=== PATIENT | male | born 1995 | race Two or more races ===

== ENCOUNTER 2020-09-21 19:30 | Emergency (ER) | payer OTHER ==
[~2020-09-21] VITALS: Ht 165.1 cm; Wt 86.2 kg
[2020-09-21] MEDS ORDERED: PROAIR RESPICL90 MCG IH (22:54)
[2020-09-21] MEDS ORDERED: ZITHROMAX500 MG PO (22:54)
[2020-09-21] MEDS ORDERED: MEDROLPACK PO (22:54)
[2020-09-21] MEDS ORDERED: TUSNEL LIQUID178 ML PO (22:54)
== END 2020-09-22 00:26 | disposition home or self-care (01) ==
LOC: ER 19:30
DX: U07.1 COVID-19 (principal)

== ENCOUNTER 2020-11-26 22:54 | Emergency (ER) | payer OTHER ==
[~2020-11-26] VITALS: Ht 167.6 cm; Wt 86.2 kg
[~2020-11-26 22:54] MED LIST: MEDROLPACK PO; PROAIR RESPICL90 MCG IH; TUSNEL LIQUID178 ML PO; ZITHROMAX500 MG PO
[2020-11-27] MEDS ORDERED: ORASEP SPRAY30 ML MM (04:12)
== END 2020-11-27 04:25 | disposition home or self-care (01) ==
LOC: ER 22:54
DX: J03.80 Acute tonsillitis due to other specified organisms (principal)

== ENCOUNTER 2023-09-07 16:07 | Emergency (ER) | payer OTHER ==
[~2023-09-07] VITALS: Ht 167.6 cm; Wt 93.0 kg
[~2023-09-07 16:07] MED LIST changes: +ORASEP SPRAY30 ML MM
[2023-09-07] MEDS ORDERED: BISMUTH SUBSALICYLATE 524 MG/30 ML BLIST.PACK PO STA (17:09)
[2023-09-07] MEDS ORDERED: ONDANSETRON HCL 2 MG/ML VIAL IM STA (17:09)
[2023-09-07] MEDS ORDERED: ONDANSETRON HCL 2 MG/ML VIAL ONE (17:15)
[2023-09-07] MEDS ORDERED: BISMUTH SUBSALICYLATE 524 MG/30 ML BLIST.PACK PO ONE (17:15)
[2023-09-07 17:48] LABS: HEMATOCRIT 45.2 % (39.0-48.0); HEMOGLOBIN 15.2 g/dL (13-16.00); MEAN CORPUSCULAR HEMOGLOBIN 28.6 pg (27.00-32.0); MEAN CORPUSCULAR HGB CONC 33.6 g/dl (32.0-36.0); PLATELET COUNT 236 K/uL (150-450); RED BLOOD COUNT 5.32 M/uL (4.00-6.00); RED CELL DISTRIBUTION WIDTH 13.6 % (11.5-14.5)
[2023-09-07] MEDS ORDERED: CEFTRIAXONE SODIUM 1,000 MG VIAL IM STA (18:36)
[2023-09-07] MEDS ORDERED: CEFTRIAXONE SODIUM 1,000 MG VIAL ONE (18:40)
[2023-09-07] MEDS ORDERED: CEPHALEXIN500 MG PO (18:47)
== END 2023-09-07 18:57 | disposition home or self-care (01) ==
LOC: EMR PED 16:07 → ER 16:24
PROVIDERS: Emergency Medicine
DX: J03.80 Acute tonsillitis due to other specified organisms (principal); K52.89 Other specified noninfective gastroenteritis and colitis

== ENCOUNTER 2024-05-10 12:29 | Emergency (ER) | payer OTHER ==
[~2024-05-10] VITALS: Ht 167.6 cm; Wt 86.2 kg
[~2024-05-10 12:29] MED LIST changes: +CEPHALEXIN500 MG PO
[2024-05-10] MEDS ORDERED: 0.9 % SODIUM CHLORIDE 1,000 ML IV STA (13:10)
[2024-05-10] MEDS ORDERED: MORPHINE SULFATE 4 MG/ML VIAL IV ONE (13:15)
[2024-05-10] MEDS ORDERED: TAMSULOSIN HCL 0.4 MG CAP PO ONE ×2 (13:15→13:25)
[2024-05-10 13:56] LABS: HEMOGLOBIN 14.4 g/dL (13-16.00); MEAN CELL VOLUME 84.7 fL (80.0-100.00); MEAN CORPUSCULAR HEMOGLOBIN 28.3 pg (27.00-32.0); MEAN CORPUSCULAR HGB CONC 33.4 g/dl (32.0-36.0); RED BLOOD COUNT 5.08 M/uL (4.00-6.00); RED CELL DISTRIBUTION WIDTH 13.9 % (11.5-14.5)
[2024-05-10 14:24] LABS: CALCIUM 9.2 mg/dL (8.5-10.1); CREATININE SERUM 1.27 mg/dL (0.70-1.30); GFR 67.53; POTASSIUM 3.75 mEq/L (3.5-5.1)
[2024-05-10 15:14] LABS: PLATELET COUNT 244 K/uL (150-450)
[2024-05-10] MEDS ORDERED: CEPHALEXIN500 M1 PO (16:32)
[2024-05-10] MEDS ORDERED: TAMS0.4C PO (16:32)
[2024-05-10] MEDS ORDERED: KETO10TA2 PO (16:32)
[2024-05-10] MEDS ORDERED: ONDANSETRON ODT8 MG PO (16:32)
[2024-05-10] MEDS ORDERED: KETOROLAC TROMETHAMINE 30 MG VIAL IV ONE (16:45)
[2024-05-10] MEDS ORDERED: KETOROLAC TROMETHAMINE 30 MG VIAL ONE (16:49)
== END 2024-05-10 17:21 | disposition home or self-care (01) ==
LOC: ER 12:30
PROVIDERS: Emergency Medicine
DX: N20.1 Calculus of ureter (principal); R10.9 Unspecified abdominal pain; R11.2 Nausea with vomiting, unspecified; R30.0 Dysuria